=== PATIENT | male | born 1980 | race Caucasian/White ===

== ENCOUNTER 2016-08-18 20:31 | Inpatient (IN) ==
[2016-08-18] MEDS ORDERED: TYLENOL PO PRN (22:08)
[2016-08-18] MEDS ORDERED: NS 1,000 ML IV SCH (22:43)
[2016-08-18] MEDS ORDERED: MORPHINE IV PRN (22:45)
[2016-08-18] MEDS ORDERED: VANCOMYCIN IV PER PHARMACY MISC SCH (22:45)
[2016-08-18] MEDS ORDERED: NICODERM PATCH TD PRN (22:49)
[2016-08-18] MEDS ORDERED: TORADOL IV PRN (22:50)
[2016-08-18] MEDS ORDERED: AMBIEN PO PRN (22:55)
[2016-08-18] MEDS ORDERED: DILAUDID IV PRN (22:55)
[2016-08-18 23:38] LABS: INR 1.06; PROTIME 11.2 Seconds (9.2-11.7)
[2016-08-18] MEDS: NS 1,000 ML IV SCH (23:44)
[2016-08-18] MEDS: ZOSYN 3.375 GM/NS 3.375 GM/50 ML IVPB IV SCH (23:44)
[2016-08-19] MEDS ORDERED: DILAUDID IM PRN (01:00)
[2016-08-19] MEDS: ZOSYN 3.375 GM/NS 3.375 GM/50 ML IVPB IV SCH ×5 (01:04→22:23)
[2016-08-19] MEDS: NS 1,000 ML IV SCH ×4 (01:04→22:22)
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
[2016-08-19] MEDS: INVANZ IM SCH ×2 (05:03→10:16)
[2016-08-19 06:50] LABS: INR 1.07; PROTIME 11.3 Seconds (9.2-11.7)
[2016-08-19 06:53] LABS: HEMATOCRIT 27.7 % (42.0-52.0); HEMOGLOBIN 8.9 g/dL (14.0-18.0); MCH 23.1 PG (27-31); MCHC 32.1 g/dL (33-37); MCV 71.9 FL (81-99); MPV 10.4 FL (7.4-10.4); RBC 3.85 XMIL (4.7-6.1)
[2016-08-19 07:03] LABS: AGAP 11; ALBUMIN 2.1 g/dL (3.5-5.0); ALKALINE PHOSPHATASE 87 U/L (32-122); BUN 10 mg/dL (8-22); CALCIUM 8.5 mg/dL (8.8-10.2); CHLORIDE 94 mmol/L (98-107); COSMO 267; GOT 38 U/L (10-34); GPT 30 U/L (10-44); IRON SATURATION 7 %; POTASSIUM 4.2 mmol/L (3.5-5.1); SODIUM 133 mmol/L (136-145); TCO2 28 mmol/L (25-35); TIBC 196 ug/dL; TOTAL BILIRUBIN 0.31 mg/dL (0.20-1.00); TOTAL IRON 14 ug/dL (53-167); TOTAL PROTEIN 6.9 g/dL (6.3-8.3); UNBOUND IRON 182 ug/dL (112-346)
--- NOTE | 2016-08-19 09:24 | Diag Imaging Result Document ---
PROCEDURE NAME: CHEST-PORTABLE - 08/19/2016 PORTABLE CHEST X-RAY: COMPARISON: 05/21/2013. FINDINGS: The lungs are normally expanded and clear. Heart size and mediastinal contours are normal. No pneumothorax or pleural effusion. IMPRESSION: Negative exam.
[2016-08-19] MEDS ORDERED: XYLOCAINE 1% MISC SCH (09:30)
[2016-08-19] MEDS: OXY IR PO SCH ×2 (10:22→17:59)
[2016-08-19] MEDS: LYRICA PO SCH ×4 (10:22→22:22)
[2016-08-19] MEDS: PATIENT'S OWN MED PO SCH ×3 (10:38→17:36)
[2016-08-19] MEDS ORDERED: NS 250 ML ONE (12:05)
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
--- NOTE | 2016-08-19 13:36 | CONSULTATION ---
DATE OF CONSULTATION: 08/19/2016 HISTORY OF PRESENT ILLNESS: This is a 36-year-old male with a history of incomplete paraplegia related to a spinal cord injury in the past, who was previously ambulatory but underwent a knee operation that has left him in the bed. He has also had some viral illnesses that have caused him to be quite debilitated and bedridden. Family noted a wound on his sacrum, prompted his admission. There is some question of IV drug abuse and appears to have some track lomeli on his right arm, but he denies this. He was admitted to Medicine Service last night. PAST MEDICAL HISTORY: 1. Paraplegia. 2. Chronic pain. 3. History of IV drug. PAST SURGICAL HISTORY: 1. Spinal surgery. 2. No abdominal operations. 3. No previous surgery for decubitus ulcers. FAMILY HISTORY: Negative for cancer. SOCIAL HISTORY: No alcohol. Smokes a pack a week and some question of IV drug abuse. REVIEW OF SYSTEMS: Ten-point negative other than what is mentioned in his HPI. OBJECTIVE: Vital signs: No fevers. Pulse 81, blood pressure 90/55, oxygen saturation 97% on room air. General: He is an alert, thin male. Cardiovascular: Normal rate, regular rhythm. Pulmonary: No increased work of breathing. Abdomen: Soft, nontender, nondistended. Integument exam: His sacrum, there is a decubitus ulcer that is at least 8 x 5 cm and approximately 5 cm deep. It probes to bone. There is some necrotic material in here. There is no cellulitis and no signs of active infection. Lower extremity exam: Without edema. LABORATORY: Labs reviewed. White count is 11. Hematocrit is 27. INR is normal at 1.07. Creatinine is 0.4. LFTs: Bilirubin is normal. AST is mildly elevated at 38, alkaline phosphatase to 187. ESR is 88. ASSESSMENT AND PLAN: This is a 36-year-old male with paraplegia related to spinal cord injury in a decubitus ulcer. This developed on the sacrum. He does need debridement of this. I think we can do this at the bedside. Following this, we will plan for Santyl therapy and wound VAC management of this decubitus ulcer. I do think that this probes to bone. He will need offloading bed both here in the hospital and going home and nutritional support. Will continue to follow along and plan for bedside debridement this afternoon. I discussed risks, benefits, and alternatives with patient; he consents to this. I do not think we will need to go to the operating room, but we will make this determination at time of this afternoon. cc: Lucy Munoz MD
--- NOTE | 2016-08-19 15:08 | OPERATIVE NOTE ---
PROCEDURE DATE : 08/19/2016 PREOPERATIVE DIAGNOSIS: Sacral decubitus ulcer. POSTOPERATIVE DIAGNOSIS: Sacral decubitus ulcer. PROCEDURE PERFORMED: Excisional debridement of sacral decubitus ulcer down to the level of the periosteum of sacrum. ESTIMATED BLOOD LOSS: Less than 5 mL. SPECIMENS: None. COMPLICATIONS: None. ANESTHESIA: None. INDICATION: This is a 36-year-old paraplegic male with sacral wound with necrotic tissue. Excisional debridement is indicated. OPERATIVE FINDINGS: There is a wound approximately 8 x 7 x 8 cm deep, probed to the level of the sacrum with a significant amount of overlying necrotic tissue. No significant cellulitis. DESCRIPTION OF PROCEDURE: Risks, benefits and alternatives were discussed. The patient consented to the procedure. A time-out between the nurse and surgical staff was performed. Surgical site was confirmed. Using sterile instruments, the necrotic, foul-smelling tissue was debrided back to healthy bleeding tissue in all directions. In the most deep portion of the wound, this did probe to the sacrum, and periosteum was visualized and required some debridement of the periosteum of the bone. He tolerated all of this well. At the conclusion, dressed the wound with Vashe dressings twice daily. There were no identified complications. I do anticipate that he will likely need further excisional debridement. We will continue local wound care in the meantime and monitor with antibiotics. cc: Lucy Munoz MD
[2016-08-19] MEDS: VANCOMYCIN 2 GM in NS 500 ML IV SCH (15:31)
[2016-08-20] MEDS: NS 1,000 ML IV SCH ×3 (01:34→15:22)
[2016-08-20] MEDS: OXY IR PO SCH ×3 (01:36→18:32)
[2016-08-20] MEDS: ZOSYN 3.375 GM/NS 3.375 GM/50 ML IVPB IV SCH ×2 (03:59→10:25)
--- NOTE | 2016-08-20 08:36 | PROGRESS NOTE ---
DATE: 08/20/2016 SUBJECTIVE: Mr. Saldana is sleeping soundly. Breathing comfortably. Easy to arouse. States he is feeling a little better. PHYSICAL EXAMINATION: Vital Signs: Temperature 98.3 degrees, pulse 80, respirations 20, blood pressure 93/54. HEENT: Pupils are equal and round. Lungs: Clear in all lung benitez. Cardiovascular Examination: Regular rhythm and rate without murmur or S3. Abdomen: Soft. Skin: Warm and dry. Is and Os: Urine output 1800 mL. LAB: White count 11,420s from yesterday, hematocrit 27, hemoglobin 8.9, platelet count 424,000. Reviewed electrolytes from yesterday. Sodium 133, potassium 4.2, chloride 94, bicarb 28, BUN 10, creatinine 0.4, calcium 8.5. ASSESSMENT AND PLAN: 1. Stage IV decubitus ulcer with infection. Put on Zosyn and vancomycin. Dr. Munoz has evaluated, did excisional debridement of the sacral decubitus down to the level of the periosteum of the sacrum. 2. Anemia, chronic inflammation. This is stable. Hemoglobin and hematocrit stable. 3. Chronic pain disorder. 4. Urinary tract infection. Continue present antibiotics. 5. History of paraplegia, chronic pain disorder. Continue present regimen. 6. I have reviewed his orders. I do not see any change at this point. cc: Gregory Tony MD
[2016-08-20] MEDS: PATIENT'S OWN MED PO SCH ×3 (10:04→17:55)
[2016-08-20] MEDS: LYRICA PO SCH ×3 (10:04→18:32)
[2016-08-20] MEDS: INVANZ IM SCH (10:25)
[2016-08-20] MEDS: DILAUDID IV PRN ×2 (11:10→18:31)
[2016-08-20] MEDS ORDERED: VANCOMYCIN IV PER PHARMACY MISC SCH (14:00)
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
[2016-08-20] MEDS: VANCOMYCIN 2 GM in NS 500 ML IV SCH (15:29)
[2016-08-20] MEDS: MAXIPIME 2 GM/NS 2 GM/100 ML IVPB IV SCH (18:32)
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
[2016-08-21] MEDS: NS 1,000 ML IV SCH ×2 (02:31→07:01)
[2016-08-21] MEDS: OXY IR PO SCH ×2 (02:31→09:03)
[2016-08-21] MEDS: LYRICA PO SCH ×3 (02:32→12:51)
--- NOTE | 2016-08-21 02:45 | PROGRESS NOTE ---
DATE: 08/20/2016 ADDENDUM: Reviewing his chart, we still do not have the results from his wound culture. It looks like he has mixed allan on the op report. Dr. Munoz went down to the bone, and I think we have to treat this as osteomyelitis and a 6-week course of outpatient antibiotics. He is pretty adamant in wanting to go home. I have discouraged him and told him that we would need another day to try and get things lined up. I am not sure if he will agree with this or not. Continue present antibiotics with vancomycin and Zosyn for now. If he leaves AMA, I encouraged him to get follow up soon from somewhere else. cc: Gregory Tony MD
[2016-08-21] MEDS: MAXIPIME 2 GM/NS 2 GM/100 ML IVPB IV SCH (07:01)
[2016-08-21] MEDS: DILAUDID IV PRN ×3 (07:02→14:43)
--- NOTE | 2016-08-21 07:33 | Diag Imaging Result Document ---
PROCEDURE NAME: CT PELVIS WITH IV CONTRAST ONL - 08/19/2016 CT PELVIS WITH INTRAVENOUS CONTRAST: A CT dose reduction protocol was used. COMPARISON: None. FINDINGS: There is a sacral decubitus ulcer at the midline and right side. At the midline, this extends to the sacrum. On the right side, this extends into the gluteus fan muscle. No definite bony erosions. There is very severe constipation with rectal stool impaction. There is a Cunningham catheter in the urinary bladder. IMPRESSION: 1. Significant sacral decubitus ulcer in the midline extending to the bone but no bony erosion. 2. Severe constipation with rectal stool impaction. 3. Decubitus ulcer at the right buttock extending into the gluteus fan muscle. [facility]
[2016-08-21 07:58] VITALS: BP 101/68
[2016-08-21] MEDS: ZOFRAN IV PRN ×2 (10:26→14:43)
[2016-08-21] MEDS: PATIENT'S OWN MED PO SCH ×2 (10:26→13:35)
[2016-08-21] MEDS ORDERED: TUMS EXTRA STRENGTH PO PRN (10:33)
--- NOTE | 2016-08-21 12:21 | PROGRESS NOTE ---
DATE: 08/21/2016 PRESENT ILLNESS: The patient has a severe sacral decubitus which involves the underlying sacrum. MEDICATIONS: Patient is on a combination of vancomycin and cefepime. PHYSICAL EXAMINATION: Vital Signs: Temperature is 98.4 degrees, pulse 83, respirations 18, and blood pressure 99/60. General: This is a somewhat ill-appearing, young male who is in no acute distress. Lungs: Clear to auscultation. Cardiovascular: Regular heart rate. Abdomen: Soft and nontender. Extremities: The right arm has a PICC in place. The PICC site is not erythematous or swollen. Back: The sacral wound has a dressing over it. The dressing is intact. LABORATORY AND X-RAY: [place] [address] with a hemoglobin of 8.9, platelet count of 424,000, creatinine 0.4. GFR is greater than 60. Liver function studies are normal. Urine and blood cultures are negative. The patient's sacral wound culture is pending. ASSESSMENT AND PLAN: My assessment is the patient has an infected sacral decubitus ulcer with underlying sacral osteomyelitis. The plan is to treat the patient with IV antibiotics for a 6-8 week course depending on the results of culture. I am going to request that the patient see me in the office in approximately 4 weeks. COMORBIDITIES: He is a paraplegic. He also smokes cigarettes. cc: Rafael Hilario MD
[2016-08-21] MEDS: VANCOMYCIN 2 GM in NS 500 ML IV SCH (14:37)
--- NOTE | 2016-08-21 18:56 | PROGRESS NOTE ---
DATE: 08/21/2016 SUBJECTIVE: Feels okay, anxious to leave the hospital. No real pain. OBJECTIVE: Vital signs: No fevers. No tachycardia. Abdomen: Soft, nontender. Integument: Warm, dry. His sacral decubitus ulcer with no necrotic tissue, some fibrinous exudate in the bed of the wound. No cellulitis, no purulence. LABS: Reviewed. ASSESSMENT/PLAN: 36-year-old male with a sacral decubitus ulcer secondary to paraplegia and bedridden state. His wound has now been debrided. Arrangements for IV antibiotics at home and wound care have been made. Will continue vashe b.i.d. for the next 2 weeks and plan for wound VAC placement at [facility] at that time. The nurse has made an appointment with me there at that time. cc: Lucy Munoz MD MTDD
--- NOTE | 2016-08-22 10:36 | DISCHARGE SUMMARY ---
ADMISSION DATE: 08/18/2016 DISCHARGE DATE: 08/21/2016 ADDENDUM: The patient is being discharged home with IV antibiotics with IV vancomycin and IV cefepime for the next 6-8 weeks. This will be provided by [facility]. Patient will follow up with Dr. Rafael Hilario in 3-4 weeks. VITAL SIGNS AT TIME OF DISCHARGE: Temperature is 97.8 degrees, heart rate 79, respirations 16, blood pressure 101/68, O2 is 100% on room air. DISCHARGE MEDICATIONS: Will included: 1. IV vancomycin and IV cefepime for at least 6-8 weeks pending his followup with Dr. Hilario. 2. Roxicodone 30 mg p.o. t.i.d. 3. Opana ER 40 mg p.o. t.i.d. 4. Lyrica 200 mg p.o. 4 times a day. DISCHARGE DIET: Regular. FOLLOWUP: Patient is being discharged home with [facility] with [facility] for IV antibiotics. Patient to return to the ED for any worsening of symptoms. He will also follow up with Dr. Sadi Munoz. TIME SPENT: Discharge time 30 minutes. Dictated by INGRID Avila for Gregory Tony MD cc: Gregory Tony MD
== END 2016-08-21 17:40 | disposition home health service (06) ==
LOC: 4N 20:31 → SUPCPDRO 20:31 → SUATTDRO 20:31
PROVIDERS: ATTEND Emergency Medicine